=== PATIENT | male | born 2005 | race Hispanic/Latino ===

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

== ENCOUNTER 2024-08-17 12:41 | Emergency (ER) | payer SELFPAY ==
[~2024-08-17] VITALS: Ht 188 cm; Wt 132.9 kg
--- NOTE | 2024-08-17 12:48 | ERN ---
ED Note History of Present Illness Stated Complaint: MELENDEZ , FEVERS Time Seen by MD: 12:43 Dictation: PATIENT IS A 19-YEAR-OLD MALE HERE WITH COMPLAINTS OF FLU-LIKE SYMPTOMS TO INCLUDE A FRONTAL HEADACHE, BODY ACHES, MILD SORE THROAT WITH PAINFUL SWALLOWING FOR THE LAST 3-4 DAYS. NO NAUSEA VOMITING NO DIARRHEA NO LOSS OF TASTE OR SMELL. STATES HIS MOTHER TOOK HIM TO SEE A DOCTOR IN [place] WHO WITHOUT ANY DIAGNOSIS PRESCRIBED SOME MEDICATIONS HOWEVER THEY NEVER WENT AND BOUGHT THEM. HE HAS NO PRIMARY CARE DOCTOR Past Medical History RN Note Reviewed/Agreed w/PFSH: Yes Review of System Dictation CONSTITUTIONAL: NEGATIVE EXCEPT FOR HPI FEVER CHILLS HEAD/FACE: NEGATIVE EXCEPT FOR HPI EENT: NEGATIVE EXCEPT FOR HPI SORE THROAT WITH PAINFUL RESPIRATORY: NEGATIVE EXCEPT FOR HPI GASTROINTESTINAL/ABDOMINAL: NEGATIVE EXCEPT FOR HPI GENITOURINARY: NEGATIVE EXCEPT FOR HPI MUSCULOSKELETAL: NEGATIVE EXCEPT FOR HPI SWALLOWING MALAISE INTEGUMENTARY: NEGATIVE EXCEPT FOR HPI NEUROLOGICAL/PSYCH: NEGATIVE EXCEPT FOR HPI HEMATOLOGIC/LYMPHATIC: NEGATIVE EXCEPT FOR HPI ALL SYSTEMS NEGATIVE, EXCEPT NOTED ABOVE. 13 POINT REVIEW OF SYSTEMS ASSESSED AND ALL NEGATIVE EXCEPT FOR ABOVE. Initial Vital Sign VS Vital Signs Date Time Temp Pulse Resp B/P (MAP) Pulse Ox O2 Delivery O2 Flow Rate FiO2 08/17/24 12:50 100.9 106 20 166/80 96 Room Air 0 Physical Exam Dictation VITAL SIGNS REVIEWED GENERAL APPEARANCE: ALERT, ORIENTED X 3, MILD ACUTE DISTRESS, WELL DEVELOPED, NOURISHED. MORBIDLY OBESE HEAD AND FACE: NON-TRAUMATIC. EYES: PERRL, PINK CONJUNCTIVAS, EYELID NO TRAUMA, ANTERIOR CHAMBER WITH ARCUS SENILIS. EARS: PINNAS INTACT AND NO SIGNS OF TRAUMA OR ERYTHEMA EAR CANALS CLEAR AND NO DISCHARGE TM NO ERYTHEMA NOSE: CLEAR DISCHARGE, NO BLEEDING. OROPHARYNX: MOUTH NORMAL, TONGUE PINK, PHARYNX CLEAR,N MILD PHARYNGEAL ERYTHEMA, TONSILS NO EXUDATES, NO ABSCESSES NOT ED, MUCOUS MEMBRANE MOIST UVULA MIDLINE, VOICE IS CLEAR POSITIVE SOME TONSILLAR LYMPHADENOPATHY NECK: SUPPLE, NON-TENDER, NO THYROMEGALY, NO MASSES, NO JVD, NO BRUITS BREAST:DEFERRED CHEST:NO TENDERNESS, NO CREPITUS, NO PARADOXICAL MOVEMENT, NO RETRACTIONS LUNGS:CLEAR, WELL-VENTILATED, SYMMETRIC, NO RALES, NO WHEEZING, NO RHONCHI, NO STRIDOR, GOOD BREATH SOUNDS BILATERALLY HEART: REGULAR RATE, REGULAR RHYTHM, NO MURMUR, NO GALLOPS VASCULAR: NO PERIPHERAL EDEMA, ABDOMEN: SOFT, POSITIVE BOWEL SOUNDS, NONDISTENDED, NO GUARDING, NONTENDER, NO REBOUND, NO MASSES NO HEPATOMEGALY, NO SPLENOMEGALY, NO OLIVER'S SIGN, NO HERNIAS. RECTAL: DEFERRED GENITAL: DEFERRED NEUROLOGICAL: NORMAL SPEECH, MOTOR FUNCTION INTACT, SENSORY FUNCTION INTACT MUSCULOSKELETAL: NECK NONTENDER, FULL RANGE OF MOTION, BACK NONTENDER, FULL RANGE OF MOTION, EXTREMITIES: NONTENDER, FULL RANGE OF MOTION SKIN: COLOR PINK, DRY, NO TURGOR, NO RASH, NO LACERATIONS, NO ABRASIONS, NO CONTUSIONS. LYMPHATIC: DEFERRED Results (Laboratory/Radiology) Laboratory/Radiology Laboratory Tests Test 08/17/24 12:52 Influenza Type A Antigen Negative For Type A Influenza Type B Antigen Negative For Type B SARS-CoV-2 Antigen (Rapid) PRESUMPTIVE NEGATIVE Group A Streptococcus Rapid negative (NEGATIVE) Labs Reviewed?: Yes ED Course ED Course Orders Procedure Category Date Status Time Ibuprofen 800 Mg Tab PHA 08/17/24 Complete (Motrin) 13:00 Covid19 (Sars Antigen LAB 08/17/24 Complete Rapid) 12:45 Influenza Type A & B, LAB 08/17/24 Complete Rapid 12:45 Rapid (Group A Strep) LAB 08/17/24 Complete 12:45 Current Medications Medications (Trade) Dose Ordered Sig/Jg Route PRN Reason Start Time Stop Time Status Last Admin Dose Admin Ibuprofen (moTRIN) 800 mg ONCE ONCE PO 08/17/24 13:00 08/17/24 13:01 DC 08/17/24 13:52 Vital Signs Date Time Temp Pulse Resp B/P (MAP) Pulse Ox O2 Delivery O2 Flow Rate FiO2 08/17/24 13:52 100.9 08/17/24 12:50 100.9 106 20 166/80 96 Room Air 0 1355, PATIENT WILL BE TREATED FOR FEVER AND NONSPECIFIC PHARYNGITIS. WE WILL BE GIVEN [id number] B.I.D. FOR 10 DAYS WITH IBUPROFEN AND TOLD TO SEE HIS PRIMARY CARE DOCTOR FOR FOLLOW UP INCREASE HIS FLUID INTAKE. Medical Decision Making MDM MEDICAL DECISION-MAKING BASED ON SWABS FOR FLU COVID AND STREP. PATIENT WILL BE TREATED EMPIRICALLY FOR NONSPECIFIC ACUTE PHARYNGITIS AND FEVER DISCHARGED HOME WITH AUGMENTIN AND IBUPROFEN 800S TOLD TO SEE HIS DOCTOR IN 1-2 DAYS. DX & DISP Disposition: Discharge Departure Impression: Primary Impression: Acute pharyngitis, unspecified Additional Impression: Fever Condition: Stable Scripts Ibuprofen (Ibuprofen 800 mg Tab) 800 Mg Tab 800 MG PO Q8H PRN for fever or pain, #30 TAB 0 Refills Prov: DESI GALAVIZ NP 08/17/24 Amoxicillin/Potassium Clav (Amox Tr-K Clv 875-125 mg Tab) 875 Mg-125 Mg Tablet 1 EACH PO BID for 10 Days, #20 TAB 0 Refills Prov: DESI GALAVIZ NP 08/17/24 Additional Instructions: FOLLOW-UP WITH PRIMARY CARE PROVIDER IN 1 TO 2 DAYS. TAKE MEDICATIONS DIRECTED HERE IN THE EMERGENCY ROOM. OKAY TO CONTINUE HOME MEDICATIONS UNLESS OTHERWISE DISCUSSED DURING YOUR VISIT IN THE EMERGENCY ROOM TODAY. RETURN TO YOUR NEAREST EMERGENCY ROOM IF SYMPTOMS WORSEN OR IF THERE IS NO IMPROVEMENT. CALL 911 IF YOU NEED IMMEDIATE ASSISTANCE. TAKE TYLENOL OR MOTRIN [id number] NEEDED AND IF NO CONTRAINDICATIONS ARE PRESENT. INCREASE ORAL HYDRATION. A WOUND CULTURE OR URINE CULTURE WAS ORDERED HERE IN THE EMERGENCY ROOM DEPARTMENT PLEASE FOLLOW-UP WITH PRIMARY CARE PROVIDER AND ADVISE THEM TO GET REPEAT PORTS FROM OUR FACILITY. IF YOU HAD ANY DIANA WRAP/SPLINTS THAT WERE APPLIED HERE, PLEASE DO NOT REMOVE THEM UNTIL YOU SEE YOUR PRIMARY CARE OR SPECIALTY. TAKE YOUR ANTIBIOTICS DIRECTED UNTIL GONE. INCREASE YOUR WATER INTAKE. SEE YOUR PRIMARY CARE DOCTOR FOR FOLLOW UP IN 1-2 DAYS. Referrals: SHARIFA JARAMILLO (PCP) Time of Disposition: 13:55 I have reviewed the case, and I agree with, Diagnosis and Plan DESI GALAVIZ NP Aug 17, 2024 12:48
[2024-08-17 13:10] LABS: RAPID GROUP A STREP negative (NEGATIVE)
[2024-08-17 13:20] LABS: COVID19 (SARS ANTIGEN RAPID) PRESUMPTIVE NEGATIVE (NEGATIVE); INFLUENZA TYPE A Negative For Type A (NEGATIVE); INFLUENZA TYPE B Negative For Type B (NEGATIVE)
[2024-08-17 13:52] VITALS: TEMP 101
[2024-08-17] MEDS: ibuPROFEN 800 MG TAB PO ONE (13:52)
[2024-08-17] MEDS ORDERED: AMOX1TAB16 PO (13:56)
[2024-08-17] MEDS ORDERED: IBUP-2077 PO (13:56)
[2024-08-17 14:14] VITALS: BP 155/79; PULSE 98; RESP 20; TEMP 99.3; O2SAT 100
== END 2024-08-17 14:27 | disposition home or self-care (01) ==
LOC: EDH 12:41
DX: J02.9 Acute pharyngitis, unspecified (principal); R50.9 Fever, unspecified; Z20.822 Contact with and (suspected) exposure to COVID-19
CPT/HCPCS: 87426; 87804; 87880; 99283